=== PATIENT | female | born 1960 | race Caucasian/White ===

== ENCOUNTER → 2018-06-11 12:20 | Outpatient (CLI) | payer OTHER, SELFPAY ==
--- NOTE | 2018-06-11 | DI.MG.S_ITS ---
BILATERAL DIGITAL SCREENING MAMMOGRAM 3D/2D WITH CAD: 06/11/2018 CLINICAL: Routine screening. Comparison is made to exams dated: 05/13/2017 mammogram, 04/10/2016 mammogram, 08/03/2014 mammogram, and 06/18/2013 mammogram - [facility]. The tissue of both breasts is heterogeneously dense. This may lower the sensitivity of mammography. Current study was also evaluated with a Computer Aided Detection (CAD) system. No significant masses, calcifications, or other findings are seen in either breast. There has been no significant interval change. IMPRESSION: NEGATIVE There is no mammographic evidence of malignancy. A 1 year screening mammogram is recommended. This exam was interpreted at Station ID: [id number]. NOTE: For mammograms, a report in lay terms will be sent to the patient. Approximately 15% of breast malignancies will not be visualized mammographically. In the management of a palpable breast mass, a negative mammogram must not discourage biopsy of a clinically suspicious lesion. Electronically Signed By: Jean Claude powell/mark:06/11/2018 17:41:47 letter sent: Normal Exam ACR BI-RADS Category 1: Negative 3341F
== END ==
PROVIDERS: Family Provider Internal Medicine; PCP Internal Medicine; Visit Provider Nurse Practitioner Family
DX: Z12.31 Encounter for screening mammogram for malignant neoplasm of breast (principal)
CPT/HCPCS: 77063; 77067

== ENCOUNTER → 2018-06-16 08:02 | Outpatient (CLI) | payer OTHER, SELFPAY ==
[2018-06-16 09:24] LABS: Hemoglobin 13.2 g/dL (12.0-16.0); Mean Corpuscular HGB Conc 33.8 % (30-36); Mean Corpuscular Hemoglobin 29.5 PG (26-34); Mean Corpuscular Volume 87.4 fL (80-100); Platelet Count 179 X10^3/uL (150-400); Red Blood Cell Count 4.46 X10^6/uL (4.0-5.2); Red Cell Distribution Width 12.8 % (11.6-14.8); White Blood Cell Count 4.8 X10^3/uL (4.5-11.0)
[2018-06-16 09:33] LABS: Hemoglobin A1C% w Est Avg Glu 5.3 % (4.0-6.0)
[2018-06-16 09:58] LABS: Iron 60 ug/dL (37-170)
[2018-06-16 09:59] LABS: Alanine Aminotransferase 41 IU/L (9-52); Albumin 4.7 g/dL (3.5-5.0); Albumin Globulin Ratio 1.6 (1.0-2.8); Alkaline Phosphatase 64 U/L (38-126); Aspartate Aminotransferase 39 IU/L (14-36); Bilirubin Total 0.8 mg/dL (0.2-1.3); Blood Urea Nitrogen 18 mg/dL (7-17); Calcium 9.4 mg/dL (8.4-10.2); Carbon Dioxide 30 mmol/L (22-32); Chloride 103 mmol/L (98-107); Estimated Glomerular Filt Rate > 60.0 mL/min (>60); Gamma Glutamyl Transpeptidase 20 U/L (12-43); Globulin 2.9 g/dL (1.7-4.1); Glucose 99 mg/dL (70-100); HEMOLYSIS < 15 (0-50); Potassium 3.8 mmol/L (3.4-5.1); Sodium 142 mmol/L (137-145); Total Protein 7.6 g/dL (6.3-8.2)
[2018-06-16 10:01] LABS: Vitamin D 25 Hydroxy (D3) 73.1 ng/mL (30.0-100.0)
[2018-06-16 10:10] LABS: Free T4, Direct Thyroxine 1.33 ng/dL (0.78-2.19)
[2018-06-16 10:25] LABS: Thyroid Stimulating Hormone 2.36 uIU/mL (0.47-4.68)
[2018-06-16 10:34] LABS: Hep C Virus Ab w/Reflex Quant NEGATIVE s/c (NEGATIVE)
[2018-06-16 11:01] LABS: Folate > 20.0 ng/mL (2.76-20.0); Vitamin B12 822 pg/mL (239-931)
[2018-06-18 15:51] LABS: Triiodothyronine T3 Total 84 ng/dL (76-181)
== END ==
PROVIDERS: Family Provider Internal Medicine; PCP Internal Medicine; Visit Provider Nurse Practitioner Family
DX: E03.9 Hypothyroidism, unspecified (principal); E67.3 Hypervitaminosis D; R53.83 Other fatigue; Z86.39 Personal history of other endocrine, nutritional and metabolic disease; Z11.59 Encounter for screening for other viral diseases
CPT/HCPCS: 36415; 80053; 82306; 82607; 82746; 82977; 83036; 83540; 84439; 84443; 84480; 85027; 86803

== ENCOUNTER → 2019-06-16 08:00 | Outpatient (CLI) | payer OTHER, SELFPAY ==
--- NOTE | 2019-06-16 | DI.MG.S_ITS ---
BILATERAL DIGITAL SCREENING MAMMOGRAM 3D/2D WITH CAD: 06/16/2019 CLINICAL: Routine screening. Comparison is made to exams dated: 06/11/2018 mammogram, 05/13/2017 mammogram, and 04/10/2016 mammogram - [facility]. The tissue of both breasts is heterogeneously dense. This may lower the sensitivity of mammography. Current study was also evaluated with a Computer Aided Detection (CAD) system. No significant masses, calcifications, or other findings are seen in either breast. There has been no significant interval change. IMPRESSION: NEGATIVE There is no mammographic evidence of malignancy. A 1 year screening mammogram is recommended. This exam was interpreted at Station ID: [id number]. NOTE: For mammograms, a report in lay terms will be sent to the patient. Approximately 15% of breast malignancies will not be visualized mammographically. In the management of a palpable breast mass, a negative mammogram must not discourage biopsy of a clinically suspicious lesion. Electronically Signed By: Marvin siegel/mark:06/16/2019 08:47:57 letter sent: Normal Exam ACR BI-RADS Category 1: Negative 3341F
== END ==
PROVIDERS: PCP Internal Medicine; Visit Provider Internal Medicine
DX: Z12.31 Encounter for screening mammogram for malignant neoplasm of breast (principal)
CPT/HCPCS: 77063; 77067

== ENCOUNTER → 2020-07-20 16:25 | Outpatient (CLI) | payer OTHER, SELFPAY ==
--- NOTE | 2020-07-20 16:29 | DI.RAD.S_ITS ---
PROCEDURE: XR FOOT RT MIN 3V INDICATIONS: injury TECHNIQUE: 3 views of the foot were acquired. COMPARISON: None. FINDINGS: Bones: No fractures or dislocations. No suspicious bony lesions. Soft tissues: No tibiotalar joint effusion. Achilles tendon appears normal. IMPRESSION: No acute right foot fracture or dislocation. Dictated by: Cj Tapia M.D. on 07/20/2020 at 16:50 Approved by: Cj Tapia M.D. on 07/20/2020 at 16:54
== END ==
PROVIDERS: PCP Internal Medicine; Referring Provider Internal Medicine; Visit Provider Internal Medicine
DX: M79.674 Pain in right toe(s) (principal); S99.921A Unspecified injury of right foot, initial encounter; X58.XXXA Exposure to other specified factors, initial encounter
CPT/HCPCS: 73630

== ENCOUNTER → 2020-08-03 08:18 | Outpatient (CLI) | payer OTHER, SELFPAY ==
--- NOTE | 2020-08-03 | DI.MG.S_ITS ---
BILATERAL DIGITAL SCREENING MAMMOGRAM 3D/2D WITH CAD: 08/03/2020 CLINICAL: Routine screening. Comparison is made to exams dated: 06/16/2019 mammogram, 06/11/2018 mammogram, and 05/13/2017 mammogram - [facility]. The tissue of both breasts is heterogeneously dense. This may lower the sensitivity of mammography. Current study was also evaluated with a Computer Aided Detection (CAD) system. No significant masses, calcifications, or other findings are seen in either breast. There has been no significant interval change. IMPRESSION: NEGATIVE There is no mammographic evidence of malignancy. A 1 year screening mammogram is recommended. This exam was interpreted at Station ID: [id number]. NOTE: For mammograms, a report in lay terms will be sent to the patient. Approximately 15% of breast malignancies will not be visualized mammographically. In the management of a palpable breast mass, a negative mammogram must not discourage biopsy of a clinically suspicious lesion. Electronically Signed By: Jean Claude powell/mark:08/03/2020 09:20:51 copy to: Nicole Garduno letter sent: Normal Exam ACR BI-RADS Category 1: Negative 3341F
== END ==
PROVIDERS: PCP Internal Medicine; Referring Provider Internal Medicine; Visit Provider Internal Medicine
DX: Z12.31 Encounter for screening mammogram for malignant neoplasm of breast (principal)
CPT/HCPCS: 77063; 77067

== ENCOUNTER → 2020-10-03 11:10 | Outpatient (CLI) | payer OTHER, SELFPAY ==
--- NOTE | 2020-10-03 | DI.US.S_ITS ---
PROCEDURE: US RENAL COMPLETE INDICATIONS: RIGHT FLANK PAIN AND RENAL INSUFFICIENCY TECHNIQUE: Real-time scanning was performed of the kidneys and bladder, with image documentation. COMPARISON: None. FINDINGS: Kidneys: Kidneys are normal in size. Right kidney measures 9.7 cm long; left kidney measures 11.3 cm long. Right renal cortical thickness is 1.3 cm; left renal cortical thickness is 1.1 cm. Renal cortical echotexture is normal. No hydronephrosis or nephrolithiasis. Trace left renal pelviectasis. No suspicious solid mass lesions. Bladder: Pre-void bladder volume is 235 mL. Post-void residual is 15 mL. Pre-void images demonstrate no intraluminal masses or stones. On pre-void images, bilateral ureteral jets are noted with color Doppler interrogation. (Of note, ureteral jets may not be detectable in up to 25% of cases due to insufficient differences in specific gravity between ureteral and bladder urine). Miscellaneous: No free pelvic fluid. IMPRESSION: Minimal left renal pelviectasis. Dictated by: Twin Galeano [facility] Interpreted: Huber Yarbrough MD on 10/03/2020 at 13:21 Approved by: Huber Yarbrough M.D. on 10/03/2020 at 14:09
== END ==
PROVIDERS: PCP Internal Medicine; Referring Provider Internal Medicine; Visit Provider Internal Medicine
DX: R10.9 Unspecified abdominal pain (principal); N28.9 Disorder of kidney and ureter, unspecified
CPT/HCPCS: 76770

== ENCOUNTER → 2020-12-07 09:28 | Outpatient (CLI) | payer OTHER, SELFPAY | PROVIDERS: PCP Internal Medicine; Referring Provider Internal Medicine; Visit Provider Internal Medicine | DX: M85.851 Other specified disorders of bone density and structure, right thigh (principal); Z78.0 Asymptomatic menopausal state; Z87.891 Personal history of nicotine dependence; Z82.62 Family history of osteoporosis | CPT/HCPCS: 77080 ==

== ENCOUNTER → 2021-05-21 16:14 | Outpatient (CLI) | payer OTHER, SELFPAY ==
[2021-05-21 16:43] LABS: Add Manual Diff / Slide Review NO; Basophils Absolute Auto 0 /uL (0-100); Basophils Percent Auto 0.7 % (0-2); Eosinophils Absolute Auto 200 /uL (0-450); Eosinophils Percent Auto 3.2 % (2-4); Hematocrit 37.7 % (36-46); Hemoglobin 12.8 g/dL (12.0-16.0); Lymphocytes Absolute Auto 1900 /uL (1100-4500); Lymphocytes Percent Auto 36.1 % (25-40); Mean Corpuscular Hemoglobin 28.9 PG (26-34); Monocytes Absolute Auto 300 /uL (0-900); Neutrophils Absolute Auto 2900 /uL (1500-7000); Platelet Count 192 X10^3/uL (150-400); Red Blood Cell Count 4.43 X10^6/uL (4.0-5.2); Red Cell Distribution Width 12.9 % (11.6-14.8); White Blood Cell Count 5.3 X10^3/uL (4.5-11.0)
[2021-05-21 17:04] LABS: INR 1.2 (0.9-1.3); Prothrombin Time 13.4 SECONDS (10.1-12.7)
[2021-05-21 17:13] LABS: Alanine Aminotransferase 20 IU/L (<35); Albumin 4.7 g/dL (3.5-5.0); Albumin Globulin Ratio 1.7 (1.0-2.8); Alkaline Phosphatase 54 U/L (38-126); Aspartate Aminotransferase 30 IU/L (14-36); Bilirubin Total 0.8 mg/dL (0.2-1.3); Blood Urea Nitrogen 20 mg/dL (7-17); Calcium 10.3 mg/dL (8.4-10.2); Carbon Dioxide 30 mmol/L (22-32); Chloride 101 mmol/L (98-107); Estimated Glomerular Filt Rate 56.7 mL/min (>60); Globulin 2.8 g/dL (1.7-4.1); Glucose 100 mg/dL (70-100); HEMOLYSIS < 15 (0-50); Potassium 4.1 mmol/L (3.4-5.1); Sodium 139 mmol/L (137-145); Total Protein 7.5 g/dL (6.3-8.2)
== END ==
PROVIDERS: PCP Internal Medicine; Referring Provider Internal Medicine; Visit Provider Internal Medicine
DX: R19.5 Other fecal abnormalities (principal); R19.8 Other specified symptoms and signs involving the digestive system and abdomen
CPT/HCPCS: 36415; 80053; 85025; 85610

== ENCOUNTER → 2021-06-28 12:49 | Outpatient (CLI) | payer OTHER, SELFPAY ==
--- NOTE | 2021-06-28 12:50 | DI.RAD.S_ITS ---
PROCEDURE: XR CHEST 2V INDICATIONS: Post COVID/Possible Pneumonia TECHNIQUE: 2 views of the chest were acquired. COMPARISON: [facility], , CHEST 1 VIEW, 07/27/2015, 15:46. FINDINGS: Surgical changes and devices: None. Lungs and pleura: Mild streaky opacity at the right lung base. No pleural effusions or pneumothorax. Mediastinum: Mediastinal contours are normal. Heart size is normal. Bones and chest wall: No suspicious bony abnormalities. Soft tissues appear unremarkable. IMPRESSION: Mild streaky opacity at the right lung base. Favor atelectasis over pneumonia. Dictated by: Janes Murrell M.D. on 06/28/2021 at 15:50 Approved by: Janes Murrell M.D. on 06/28/2021 at 15:51
== END ==
PROVIDERS: PCP Internal Medicine; Referring Provider Internal Medicine; Visit Provider Internal Medicine
DX: Z09 Encounter for follow-up examination after completed treatment for conditions other than malignant neoplasm (principal); Z86.16 Personal history of COVID-19; J18.9 Pneumonia, unspecified organism
CPT/HCPCS: 71046

== ENCOUNTER → 2021-08-28 16:32 | Outpatient (CLI) | payer OTHER, SELFPAY ==
--- NOTE | 2021-08-28 16:34 | DI.MG.S_ITS ---
BILATERAL DIGITAL SCREENING MAMMOGRAM 3D/2D WITH CAD: 08/28/2021 CLINICAL: Routine screening. Comparison is made to exams dated: 08/03/2020 mammogram, 06/16/2019 mammogram, and 06/11/2018 mammogram - [facility]. The tissue of both breasts is heterogeneously dense. This may lower the sensitivity of mammography. Current study was also evaluated with a Computer Aided Detection (CAD) system. No significant masses, calcifications, or other findings are seen in either breast. There has been no significant interval change. IMPRESSION: NEGATIVE There is no mammographic evidence of malignancy. A 1 year screening mammogram is recommended. This exam was interpreted at Station ID: [id number]. NOTE: For mammograms, a report in lay terms will be sent to the patient. Approximately 15% of breast malignancies will not be visualized mammographically. In the management of a palpable breast mass, a negative mammogram must not discourage biopsy of a clinically suspicious lesion. Electronically Signed By: Jenni rosales/mark:08/28/2021 17:18:23 copy to: Nicole Garduno letter sent: Normal Exam ACR BI-RADS Category 1: Negative 3341F
== END ==
PROVIDERS: PCP Internal Medicine; Referring Provider Internal Medicine; Visit Provider Internal Medicine
DX: Z12.31 Encounter for screening mammogram for malignant neoplasm of breast (principal)
CPT/HCPCS: 77063; 77067

== ENCOUNTER → 2021-09-24 16:32 | Outpatient (CLI) | payer OTHER, SELFPAY ==
--- NOTE | 2021-09-24 16:35 | DI.RAD.S_ITS ---
PROCEDURE: XR HIP W PEL IF DONE RT 2V INDICATIONS: RIGHT HIP PAIN TECHNIQUE: AP pelvis with lateral view(s) of the right hip(s). COMPARISON: None. FINDINGS: Bones: No fractures or dislocations. Pelvic ring appears intact. No suspicious bony lesions. Soft tissues: The visualized bowel gas pattern is normal. No suspicious soft tissue calcifications. IMPRESSION: No acute radiographic findings. No findings to explain hip pain. Dictated by: Ileana Saeed M.D. on 09/25/2021 at 8:19 Approved by: Ileana Saeed M.D. on 09/25/2021 at 8:19
== END ==
PROVIDERS: PCP Internal Medicine; Referring Provider Internal Medicine; Visit Provider Internal Medicine
DX: M25.551 Pain in right hip (principal)
CPT/HCPCS: 73502

== ENCOUNTER → 2021-10-04 10:10 | Outpatient (CLI) | payer OTHER, SELFPAY ==
[2021-10-04 12:22] LABS: HEMOLYSIS < 15 (0-50); Iron 65 ug/dL (37-170)
[2021-10-04 12:33] LABS: Percent Iron Saturation 18 % (15-50); Total Iron Binding Capacity 362 ug/dL (265-497); Transferrin 292 mg/dL (206-381)
[2021-10-04 12:38] LABS: Vitamin D 25 Hydroxy (D3) 34.4 ng/mL (30.0-100.0)
[2021-10-04 12:59] LABS: Ferritin 35 ng/mL (11-264)
[2021-10-04 13:30] LABS: Vitamin B12 866 pg/mL (239-931)
[2021-10-06 16:42] LABS: ANA Screen, IFA Positive (.); Speckled Pattern >1:1280 (.)
== END ==
PROVIDERS: PCP Internal Medicine; Referring Provider Dermatology; Visit Provider Dermatology
DX: L65.0 Telogen effluvium (principal); F43.0 Acute stress reaction
CPT/HCPCS: 36415; 82306; 82607; 82728; 82746; 83540; 83550; 86038

== ENCOUNTER → 2022-09-27 07:57 | Outpatient (CLI) | payer OTHER, SELFPAY ==
--- NOTE | 2022-09-27 08:00 | DI.MG.S_ITS ---
BILATERAL DIGITAL SCREENING MAMMOGRAM 3D/2D WITH CAD: 09/27/2022 CLINICAL: Routine screening. Comparison is made to exams dated: 08/28/2021 mammogram, 08/03/2020 mammogram, and 06/16/2019 mammogram - [facility]. Both breasts are heterogeneously dense, which may obscure small masses (category c / 51-75% glandular tissue). Current study was also evaluated with a Computer Aided Detection (CAD) system. No significant masses, calcifications, or other findings are seen in either breast. There has been no significant interval change. IMPRESSION: NEGATIVE There is no mammographic evidence of malignancy. A 1 year screening mammogram is recommended. Based on the Tyrer Cuzick model (a risk assessment model) the patient's lifetime risk is 11.1% and her 10 year risk is 4.5%. According to the ACR, ACS, and NCCN guidelines, an annual breast MRI exam along with mammogram is recommended if the patient's lifetime risk is 20% or greater. This exam was interpreted at Station ID: [id number]. NOTE: For mammograms, a report in lay terms will be sent to the patient. Approximately 15% of breast malignancies will not be visualized mammographically. In the management of a palpable breast mass, a negative mammogram must not discourage biopsy of a clinically suspicious lesion. Electronically Signed By: Jenni rosales/mark:09/27/2022 17:15:17 copy to: Nicole Garduno letter sent: Normal Exam ACR BI-RADS Category 1: Negative 3341F
== END ==
PROVIDERS: PCP Internal Medicine; Referring Provider Internal Medicine; Visit Provider Internal Medicine
DX: Z12.31 Encounter for screening mammogram for malignant neoplasm of breast (principal)
CPT/HCPCS: 77063; 77067

== ENCOUNTER → 2022-11-26 09:03 | Outpatient (CLI) | payer OTHER, SELFPAY ==
--- NOTE | 2022-11-26 09:03 | DI.RAD.S_ITS ---
PROCEDURE: XR RIBS LT MIN 3V W CXR1V INDICATIONS: Pain in left ribs TECHNIQUE: 2 views of the left ribs were acquired, along with a single view chest. COMPARISON: [facility], , XR CHEST 2V, 06/28/2021, 12:44. FINDINGS: Surgical changes and devices: None. Bones and chest wall: No fractures or dislocations. No suspicious bony lesions. Overlying soft tissues appear unremarkable. Lungs and pleura: No pleural effusions or pneumothorax. Lungs appear clear. Mediastinum: Mediastinal contours appear normal. Heart size is normal. IMPRESSION: No acute cardiopulmonary abnormality. No displaced left-sided rib fracture. Dictated by: Janes Murrell M.D. on 11/26/2022 at 12:12 Approved by: Janes Murrell M.D. on 11/26/2022 at 12:17
== END ==
PROVIDERS: PCP Internal Medicine; Referring Provider Physician Assistant; Visit Provider Physician Assistant
DX: R07.81 Pleurodynia (principal)
CPT/HCPCS: 71101

== ENCOUNTER → 2023-01-01 08:13 | Outpatient (CLI) | payer OTHER, SELFPAY ==
[2023-01-01 09:50] LABS: Creatinine Urine Random 19.4 mg/dL; Protein (Total) Urine Random 12 mg/dL (0-12); Protein Creatinine Ratio Urine 0.61 GRAM/24H
[2023-01-01 09:56] LABS: Microalbumin Urine Random < 0.6 mg/dL (0-1.6)
== END ==
PROVIDERS: PCP Internal Medicine; Referring Provider Internal Medicine Nephrology; Visit Provider Internal Medicine Nephrology
DX: R80.1 Persistent proteinuria, unspecified (principal)
CPT/HCPCS: 82043; 82570; 84156

== ENCOUNTER → 2023-03-25 15:14 | Outpatient (CLI) | payer OTHER, SELFPAY ==
--- NOTE | 2023-03-25 15:15 | DI.RAD.S_ITS ---
Bone Density Report Name: JERONIMO STEWARD Age: 62 Sex: Female Ethnicity: White Date of : 1960 Indication: postmenopausal; screening for osteoporosis; history of glucocorticoids; Referring Provider: CELIA RODRIGUEZ Study: Bone densitometry was performed. Exam Date: March 25, 2023 Accession number: [id number] Bone Density: Region BMD T-score Z-score Classification AP Spine(L1, L3, L4) 0.910 -1.3 0.2 Osteopenia Femoral Neck (Left) 0.679 -1.5 -0.2 Osteopenia Total Hip (Left) 0.863 -0.6 0.3 Normal Femoral Neck (Right) 0.680 -1.5 -0.2 Osteopenia Total Hip (Right) 0.867 -0.6 0.4 Normal Total Hip Mean 0.865 -0.6 0.4 Normal World Health Organization criteria for BMD impression classify patients as: Normal (T-score at or above -1.0), Osteopenia (T-score between -1.0 and -2.5), or Osteoporosis (T-score at or below -2.5). 10-year Fracture Risk(1): Major Osteoporotic Fracture 12% Hip Fracture 1.3% Reported Risk Factors: [place] (), Neck BMD=0.679, BMI=19.8, glucocorticoids (1) FRAX(R) Version 3.08. Fracture probability calculated for an untreated patient. Fracture probability may be lower if the patient has received treatment. Previous Exams: -- Region Exam Age BMD T-score BMD Change BMD Change Date g/cm2 vs Baseline vs Previous -- AP Spine (L1,L3-L4) 03/25/2023 62 0.910 -1.3 -0.111 (-10.9%)# -0.111 (-10.9%)# 12/07/2020 60 1.021 -0.3 Total Hip(Left) 03/25/2023 62 0.863 -0.6 -0.064 (-6.9%)# -0.064 (-6.9%)# 12/07/2020 60 0.927 -0.1 Total Hip(Right) 03/25/2023 62 0.867 -0.6 -0.009 (-1.0%)# -0.009 (-1.0%)# 12/07/2020 60 0.876 -0.5 -- *Denotes significance at 95% confidence level, LSC for AP Spine = 0.022 g/cm2, LSC for Total Hip = 0.027 g/cm2 # Denotes dissimilar scan types or analysis methods Impression: The patient has low bone mass, based on the Left Femoral Neck T-score. The patient has an estimated ten-year risk of hip fracture of 1.3% and an estimated ten-year risk of major fracture of 12%, based on the WHO FRAX algorithm. The patient has risk factors, including: history of glucocorticoid therapy. No significant bone loss was observed. Discussion: BONE DENSITY IS LOW AT ONE OR MORE SKELETAL SITES. This patient's lowest T-score is low at one or more skeletal sites. It meets the World Health Organization's (WHO) criteria for low bone mass (T-score between -1.0 and -2.5). The patient's 10-year risk of fracture as calculated by FRAX is less than the threshold where pharmacological therapy is recommended by the National Osteoporosis Foundation (NOF). However, all treatment decisions require clinical judgment and consideration of individual patient factors, including patient preferences, comorbidities, previous drug use, risk factors not captured in the FRAX model (e.g., frailty, falls, vitamin D deficiency, increased bone turnover, interval significant decline in bone density) and possible under or overestimation of fracture risk by FRAX. The patient should follow a healthful lifestyle (good nutrition with adequate calcium and vitamin D, and appropriate weight-bearing exercise). Follow-Up: Consider repeating this study in 2 to 3 years to reassess this patient's status, or sooner if there is some new clinical indication. Reported by: SANTOSH REED M.D. on 03/25/2023 3:34:00 PM.
== END ==
PROVIDERS: PCP Internal Medicine; Referring Provider Internal Medicine; Visit Provider Internal Medicine
DX: Z78.0 Asymptomatic menopausal state (principal); M85.852 Other specified disorders of bone density and structure, left thigh; Z92.241 Personal history of systemic steroid therapy; Z92.23 Personal history of estrogen therapy
CPT/HCPCS: 77080

== ENCOUNTER → 2023-06-12 08:01 | Outpatient (CLI) | payer OTHER, SELFPAY ==
--- NOTE | 2023-06-12 | DI.RAD.S_ITS ---
PROCEDURE: XR ANKLE RT MIN 3V INDICATIONS: right ankle pain TECHNIQUE: 3 views of the ankle were acquired. COMPARISON: None. FINDINGS: Bones: No fractures or dislocations. Ankle mortise is normally aligned. No suspicious bony lesions. Soft tissues: No tibiotalar joint effusion. Achilles tendon appears normal. IMPRESSION: No acute bony abnormality or significant effusion. Approved by: Rosa M Mclaughlin M.D. on 06/12/2023 at 10:20
--- NOTE | 2023-06-12 | DI.US.S_ITS ---
PROCEDURE: US ABDOMEN COMPLETE INDICATIONS: GALL STONES TECHNIQUE: Real-time scanning was performed of the abdominal and retroperitoneal organs, with image documentation. COMPARISON: [facility], [place], ABDOMEN COMPLETE, 10/03/2017, 9:27. FINDINGS: Liver: Liver is normal in size and homogeneous in echotexture. Gallbladder: Layering sludge versus small gallstones can be seen. The gallbladder wall is not thickened, measuring 3 mm or less. No specific pericholecystic fluid is seen. The sonographic Waller sign is negative. Biliary ducts: Intrahepatic bile ducts are non-dilated. Extrahepatic bile duct caliber measures 1 mm. Normal is 6-7 mm or less in diameter, or 10 mm or less post-cholecystectomy. Pancreas: Visualized portions of the pancreas are sonographically normal. Spleen: Spleen is normal in size and homogeneous in echotexture. Incidental note is made of an accessory splenule along the hilum of the primary spleen, measuring up to 2.6 cm. Kidneys: Kidneys are normal in size and echotexture. Right kidney measures 10.2 cm long; left kidney measures 9.8 cm long. No nephrolithiasis. No solid masses. No kaleb hydronephrosis is seen, although there is a prominent left renal collecting system. Aorta: Visualized aorta is normal in caliber at less than 3 cm. Iliacs: Proximal common iliac arteries are normal in caliber at less than 2.5 cm. IVC: Intrahepatic inferior vena cava is patent. Miscellaneous: No free abdominal fluid. IMPRESSION: Sludge versus small layering gallstones, without additional sonographic signs of cholecystitis. No biliary dilatation. Mild prominence of the left renal collecting system can be seen, without kaleb hydronephrosis. Additional findings: Accessory splenule Dictated by: Jose Manuel Olmedo M.D. on 06/12/2023 at 11:58 Approved by: Jose Manuel Olmedo M.D. on 06/12/2023 at 12:02
== END ==
PROVIDERS: PCP Internal Medicine; Referring Provider Internal Medicine; Visit Provider Internal Medicine
DX: M25.571 Pain in right ankle and joints of right foot (principal); K80.20 Calculus of gallbladder without cholecystitis without obstruction; R79.89 Other specified abnormal findings of blood chemistry; R53.83 Other fatigue
CPT/HCPCS: 73610; 76700

== ENCOUNTER → 2023-11-07 15:43 | Outpatient (CLI) | payer OTHER, SELFPAY ==
--- NOTE | 2023-11-07 15:48 | DI.MG.S_ITS ---
BILATERAL DIGITAL SCREENING MAMMOGRAM 3D/2D WITH CAD: 11/07/2023 CLINICAL: Routine screening. Comparison is made to exams dated: 09/27/2022 mammogram, 08/28/2021 mammogram, and 08/03/2020 mammogram - [facility]. Both breasts are heterogeneously dense, which may obscure small masses (category c / 51-75% glandular tissue). Current study was also evaluated with a Computer Aided Detection (CAD) system. No significant masses, calcifications, or other findings are seen in either breast. There has been no significant interval change. IMPRESSION: NEGATIVE There is no mammographic evidence of malignancy. A 1 year screening mammogram is recommended. Based on the Tyrer Cuzick model (a risk assessment model) the patient's lifetime risk is 10.8% and her 10 year risk is 4.6%. According to the ACR, ACS, and NCCN guidelines, an annual breast MRI exam along with mammogram is recommended if the patient's lifetime risk is 20% or greater. This exam was interpreted at Station ID: [id number]. NOTE: For mammograms, a report in lay terms will be sent to the patient. Approximately 15% of breast malignancies will not be visualized mammographically. In the management of a palpable breast mass, a negative mammogram must not discourage biopsy of a clinically suspicious lesion. Electronically Signed By: Ileana paula/mark:11/07/2023 16:34:59 copy to: Nicole Garduno letter sent: Normal Exam ACR BI-RADS Category 1: Negative 3341F
== END ==
LOC: MAMMO 15:47
PROVIDERS: PCP Internal Medicine; Referring Provider Internal Medicine; Visit Provider Internal Medicine
DX: Z12.31 Encounter for screening mammogram for malignant neoplasm of breast (principal); R92.333 Mammographic heterogeneous density, bilateral breasts
CPT/HCPCS: 77063; 77067

== ENCOUNTER → 2023-11-20 13:19 | Outpatient (CLI) | payer OTHER, SELFPAY ==
--- NOTE | 2023-11-20 13:22 | DI.RAD.S_ITS ---
PROCEDURE: XR CHEST 2V INDICATIONS: SOB TECHNIQUE: 2 views of the chest were acquired. COMPARISON: [facility], CT, CT ABDOMEN PELVIS WITH CONTRAST, 07/29/2023, 11:29. [facility], CR, XR CHEST 2V, 06/28/2021, 12:44. FINDINGS: Surgical changes and devices: None. Lungs and pleura: Lungs are clear. No pleural effusions or pneumothorax. Mediastinum: Mediastinal contours are normal. Heart size is normal. Bones and chest wall: No suspicious bony abnormalities. Soft tissues appear unremarkable. IMPRESSION: No acute cardiopulmonary abnormality is seen. Dictated by: Janes Murrell M.D. on 11/20/2023 at 15:18 Approved by: Janes Murrell M.D. on 11/20/2023 at 15:18
== END ==
PROVIDERS: PCP Internal Medicine; Referring Provider Internal Medicine Cardiovascular Disease; Visit Provider Internal Medicine Cardiovascular Disease
DX: R55 Syncope and collapse (principal); R06.02 Shortness of breath; I49.3 Ventricular premature depolarization
CPT/HCPCS: 71046

== ENCOUNTER 2023-12-16 18:44 | Emergency (ER) | payer OTHER, SELFPAY ==
[2023-12-16 18:50] VITALS: BP 141/67; PULSE 73; RESP 16; TEMP 36.1; O2SAT 100; BMI 19.8
--- NOTE | 2023-12-16 21:37 | ED.LOWEXIN ---
HPI - Extremity Injury (Lower) General Chief Complaint: Extremity Injury, Lower Stated Complaint: rt foot swelling Time Seen by Provider: 12/16/23 21:19 Source: patient Mode of arrival: Ambulatory History of Present Illness HPI Narrative: Patient is a 63-year-old female who is here for evaluation of discomfort to the outside of her right foot. She states the symptoms happened rather suddenly without a specific trauma. The past 2 days she has had cramping in both of her calf muscles. She recently was diagnosed with rheumatoid arthritis. Is on a low-dose naltrexone for this. No prior injury to her foot. She denies chest pain or shortness of breath to me on my exam. No fevers. Symptoms started when she was driving Related Data Home Medications Medication Instructions Recorded Confirmed Citracal and Vitamin D3 See Rx Instructions PO DAILY 09/13/19 11/26/22 levothyroxine 50 mcg capsule 50 mcg PO DAILY 09/13/19 11/26/22 omega-3 fatty acids 1,000 mg 1,000 mg PO DAILY 09/13/19 11/26/22 capsule (Fish Oil Concentrate) [facility] Multivitamin 1 tab PO DAILY 05/24/21 11/26/22 vit C 50 mg-E 15 unit-zinc cit 4.5 1 tab PO DAILY 05/24/21 11/26/22 mg-lutein 2.5 mg-zeaxan chew tablet ([facility]) Allergies Allergy/AdvReac Type Severity Reaction Status Date / Time latex [LATEX] Allergy Mild RASH Verified 11/26/22 08:47 meperidine [MEPERIDINE] Allergy Unknown Verified 11/26/22 08:47 Penicillins [PENICILLINS] Allergy Unknown Verified 11/26/22 08:47 Review of Systems Constitutional Constitutional: Reports system reviewed and no additional complaints, except as documented Musculoskeletal Musculoskeletal: Reports system reviewed and no additional complaints, except as documented Integumentary/Breasts Skin/Breast: Reports system reviewed and no additional complaints, except as documented Neurologic Neurologic: Reports system reviewed and no additional complaints, except as documented Patient History Medical History Cardiac arrhythmia (06/10/11) Heart murmur (06/10/11) Acquired hypothyroidism (06/10/11) Raynaud's phenomenon without gangrene (06/10/11) Herpes simplex virus (HSV) infection (06/10/11) Family History Father Colon cancer Social History Smoking Status: Never smoker Smoking Status: Never smoker alcohol intake frequency: a few times a week Alcohol type: wine Substance Use Type: does not use Exam Initial Vital Signs Initial Vital Signs: Vital Signs Temperature 97.0 F L 12/16/23 18:50 Pulse Rate 73 12/16/23 18:50 Respiratory Rate 16 12/16/23 18:50 Blood Pressure 141/67 H 12/16/23 18:50 Pulse Oximetry 100 12/16/23 18:50 Oxygen Delivery Method Room Air 12/16/23 18:50 HENMT Head: normal to inspection and normocephalic Cardio Pulses: dorsalis pedis present on the right Skin General: no rashes or lesions noted Neuro General: patient alert, patient awake and moves all extremities Extrem Other: No lower extremity swelling. No tenderness to bilateral calf muscles are in the distribution of the deep venous system. She reports discomfort at the base of the 5th metatarsal on the right and on the dorsum of the right foot lateral aspect. Procedures Orthopedic Splinting/Casting Injury #1: Side: right Lower Extremity Injury Location: foot Lower Extremity Immobilizer: post-op shoe Post splinting neuro exam: no change Post splinting vascular exam: no change Placed by: Nursing Course Orders Ordered: ED Orders 12/16/23 21:37 XR foot RT min 3V Stat Vital Signs Vital signs: Vital Signs - 8 hr 12/16/23 22:17 Pulse Rate 58 L Respiratory Rate 16 Blood Pressure 122/58 L Pulse Oximetry 97 Oxygen Delivery Method Room Air MDM - Extremity Injury (Lower) Imaging Data Extremity x-ray #1: Radiologist's Impression: PROCEDURE: XR FOOT RT MIN 3V INDICATIONS: bas of 5th pain TECHNIQUE: 3 views of the foot were acquired. COMPARISON: [facility], , XR FOOT RT MIN 3V, 07/20/2020, 16:39. FINDINGS: Bones: Possible nondisplaced oblique intra-articular fracture at the medial 5th proximal phalangeal base. Osseous structures are otherwise intact. Soft tissues: No suspicious soft tissue calcification. IMPRESSION: Possible nondisplaced intra-articular fracture at the medial 5th proximal phalangeal base. MDM Narrative Medical decision making narrative: X-ray does show concerned about a potential fracture at the base of the proximal phalanx of the 5th toe. She has no tenderness over this area. He x-ray does not show any acute findings the base of the 5th metatarsal where she was having discomfort. I have low suspicion for DVT. Low suspicion for infection. Plan will be is to place her in a postoperative shoe for comfort. We discussed other conservative measures. Will discharge back to home with return precautions. She expressed understanding and agreement. Discharge Plan Departure Patient Disposition: Home Clinical Impression: Injury of foot, right Instructions: How To Perform RICE (Rest, Ice, Compress, Elevate) Activity Restrictions/Additional Instructions: You can walk on your right foot as tolerated although for the next couple days I do recommend wearing the hard sole shoe. Try to keep your foot elevated as much as possible. Contact your primary doctor for follow-up. Return to the emergency department for new or worsening symptoms. Prescriptions: No Action [facility] Multivitamin 1 tab PO DAILY O[facility] 50 mg-15 unit- 4.5 mg-2.5 mg tablet,chewable 1 tab PO DAILY levothyroxine 50 mcg capsule 50 mcg PO DAILY omega-3 fatty acids [Fish Oil Concentrate] 1,000 mg capsule 1,000 mg PO DAILY Citracal and Vitamin D3 See Rx Instructions PO DAILY Rx Instructions: 1 TAB PO daily; 200MG/250IU Referrals: Nicole Garduno ARNP [Primary Care Provider] - Stand Alone Forms: Patient Portal/API
[2023-12-16 22:17] VITALS: BP 122/58; PULSE 58; RESP 16; O2SAT 97
== END 2023-12-16 23:08 | disposition home or self-care (01) ==
PROVIDERS: Emergency Provider Emergency Medicine; PCP Internal Medicine
DX: S99.921A Unspecified injury of right foot, initial encounter (principal)
CPT/HCPCS: 73630; 99283

== ENCOUNTER → 2024-03-29 15:48 | Outpatient (CLI) | payer OTHER, SELFPAY ==
--- NOTE | 2024-03-29 15:51 | DI.RAD.S_ITS ---
PROCEDURE: XR HAND LT MIN 3V INDICATIONS: Pain in left finger(s) TECHNIQUE: 3 views of the hand(s) acquired. COMPARISON: None. FINDINGS: Bones: Ulnar minus anomaly noted. No other osseous abnormality. Joints: The joint spaces are normal in width and alignment without arthritic change. Soft tissues: No soft tissue abnormality. IMPRESSION: Ulnar minus. Mild osteoporosis Dictated by: Anthony Shafer M.D. on 03/30/2024 at 8:21 Approved by: Anthony Shafer M.D. on 03/30/2024 at 8:22
== END ==
LOC: RAD 15:50
PROVIDERS: PCP Internal Medicine; Referring Provider Internal Medicine; Visit Provider Internal Medicine
DX: M05.79 Rheumatoid arthritis with rheumatoid factor of multiple sites without organ or systems involvement (principal); M81.0 Age-related osteoporosis without current pathological fracture; M79.645 Pain in left finger(s); M21.832 Other specified acquired deformities of left forearm
CPT/HCPCS: 73130

== ENCOUNTER 2024-09-12 10:39 | Emergency (ER) | payer OTHER, SELFPAY ==
[2024-09-12] VITALS (12 sets, daily range): BP systolic 114–164; BP diastolic 58–76; PULSE 54–76; RESP 18–35; TEMP 36.7–36.8; O2SAT 100; BMI 21.2
--- NOTE | 2024-09-12 10:53 | DI.RAD.S_ITS ---
PROCEDURE: XR CHEST 1V INDICATIONS: Shortness of breath TECHNIQUE: One view of the chest was acquired. COMPARISON: [facility], CR, XR CHEST 2V, 11/20/2023, 12:42. FINDINGS: Surgical changes and devices: None. Lungs and pleura: Lungs are clear. No pleural effusions or pneumothorax. Mediastinum: Mediastinal contours appear normal. Heart size is normal. Bones and chest wall: No suspicious bony lesions. Overlying soft tissues appear unremarkable. IMPRESSION: No acute cardiopulmonary abnormality is seen. Approved by: Reid Narayan M.D. on 09/12/2024 at 10:50
--- NOTE | 2024-09-12 10:53 | EKG_ITS ---
[address] [address] Test Date: 2024-09-12 Pat Name: Amanda Conway Department: [facility] Room: Gender: Female Interface Analyst: [place] : 1960 Requested By: Order Number: [id number] Reading MD: Nitin Staton Measurements Intervals [place] Rate: 67 P: 81 NH: 128 QRS: 80 QRSD: 84 T: 35 QT: 402 QTc: 424 Interpretive Statements Normal sinus rhythm Electronically Signed On 09-12-2024 18:58:05 PST by Nitin Staton
[2024-09-12 11:36] LABS: Add Manual Diff / Slide Review NO; Basophils Absolute Auto 0 /uL (0-100); Basophils Percent Auto 1.3 % (0-2); Eosinophils Absolute Auto 200 /uL (0-450); Eosinophils Percent Auto 5.5 % (2-4); Hematocrit 40.1 % (36-46); Hemoglobin 13.6 g/dL (12.0-16.0); Lymphocytes Absolute Auto 1200 /uL (1100-4500); Lymphocytes Percent Auto 34.5 % (25-40); Mean Corpuscular HGB Conc 33.9 % (30-36); Mean Corpuscular Hemoglobin 29.5 PG (26-34); Monocytes Absolute Auto 200 /uL (0-900); Monocytes Percent Auto 6.8 % (3-14); Neutrophils Absolute Auto 1800 /uL (1500-7000); Neutrophils Percent Auto 51.9 % (50-75); Platelet Count 161 X10^3/uL (150-400); Red Cell Distribution Width 12.7 % (11.6-14.8); White Blood Cell Count 3.5 X10^3/uL (4.5-11.0)
[2024-09-12 11:38] LABS: INR 1.1 (0.9-1.3); Prothrombin Time 12.3 SECONDS (9.4-12.5)
[2024-09-12 11:50] LABS: Alanine Aminotransferase 24 IU/L (<35); Albumin 4.7 g/dL (3.5-5.0); Albumin Globulin Ratio 1.7 (1.0-2.8); Alkaline Phosphatase 68 U/L (38-126); Aspartate Aminotransferase 34 IU/L (14-36); BUN Creatinine Ratio 21.2 (6-22); Bilirubin Total 0.9 mg/dL (0.2-1.3); Blood Urea Nitrogen 21 mg/dL (7-17); Calcium 9.4 mg/dL (8.4-10.2); Carbon Dioxide 26 mmol/L (22-32); Chloride 103 mmol/L (98-107); Estimated Glomerular Filt Rate > 60 mL/min (>60); Globulin 2.7 g/dL (1.7-4.1); Glucose 109 mg/dL (80-110); HEMOLYSIS < 15 (0-50); Potassium 3.8 mmol/L (3.4-5.1); Sodium 139 mmol/L (137-145); Total Protein 7.4 g/dL (6.3-8.2)
[2024-09-12 12:02] LABS: NT-proBNP (BNP-Adult 18+) 169 pg/mL (<125); Troponin I < 0.012 ng/mL (0.01-0.034)
--- NOTE | 2024-09-12 12:12 | PC.NURSE ---
Patient requested to go to the bathroom. Patient self ambulated in department without assistance. This RN unhooked the patient from monitoring equipment and allowed patient to go to the restroom.
--- NOTE | 2024-09-12 13:31 | ED.SOB ---
HPI - SOB/Dyspnea General Chief Complaint: Shortness of Breath/Dyspnea Stated Complaint: Trouble Breathing/Feeling Faint Time Seen by Provider: 09/12/24 12:06 History of Present Illness HPI Narrative: 65-year-old female complaining of shortness of breath. Reportedly she has had intermittent dyspnea for several days. States that it occurs when she is walking and seated. Resolves when she lies down. It is not associated with chest pain. Says that she can exercise on her treadmill and notices symptoms when she stops. Sometimes she notices a bit of wheezing and a cough. Symptoms also occur when she is sitting down and not exerting herself. She has not had fevers. Since she had asthma as a child has not been using an inhaler. In terms of cardiac risk factors, family history of coronary disease she has a nonsmoker no personal history of diabetes elevated cholesterol or hypertension. No recent prolonged immobilizations or leg swelling although she is noticed some right calf pain recently. Not taking hormone replacement Related Data Home Medications Medication Instructions Recorded Confirmed Citracal and Vitamin D3 See Rx Instructions PO DAILY 09/13/19 04/16/24 omega-3 fatty acids 1,000 mg 1,000 mg PO DAILY 09/13/19 04/16/24 capsule (Fish Oil Concentrate) [facility]NC Multivitamin 1 tab PO DAILY 05/24/21 04/16/24 vit C 50 mg-E 15 unit-zinc cit 4.5 1 tab PO DAILY 05/24/21 04/16/24 mg-lutein 2.5 mg-zeaxan chew tablet ([place] Zhangmen) levothyroxine 50 mcg tablet 50 mcg PO DAILY 03/09/24 04/16/24 lifitegrast 5 % eye drops in a drp ophthalmic (eye) 03/09/24 04/16/24 dropperette (Xiidra) liothyronine 5 mcg tablet mcg PO 03/09/24 04/16/24 Previous Rx's Medication Instructions Recorded erythromycin 5 mg/gram (0.5 %) eye 0.5 inch EYE-RIGHT QID #3.5 grams 03/09/24 ointment albuterol sulfate 90 mcg/actuation 2 puff inhalation Q4-6H PRN 09/12/24 aerosol inhaler shortness of breath or wheezing #6.7 grams Allergies Allergy/AdvReac Type Severity Reaction Status Date / Time latex [LATEX] Allergy Mild RASH Verified 04/16/24 08:50 meperidine [MEPERIDINE] Allergy Unknown Verified 04/16/24 08:50 Penicillins [PENICILLINS] Allergy Unknown Verified 04/16/24 08:50 Patient History Medical History Cardiac arrhythmia (06/10/11) Heart murmur (06/10/11) Acquired hypothyroidism (06/10/11) Raynaud's phenomenon without gangrene (06/10/11) Herpes simplex virus (HSV) infection (06/10/11) Family History Father Colon cancer Social History Smoking Status: Never smoker Smoking Status: Never smoker alcohol intake frequency: a few times a week Alcohol type: wine Exam Initial Vital Signs Initial Vital Signs: Vital Signs Pulse Rate 76 09/12/24 10:50 Respiratory Rate 22 09/12/24 10:50 Pulse Oximetry 100 09/12/24 10:50 Tachypneic at triage, borderline bradycardic normal oxygen saturation HENMT HENMT Other: Normocephalic atraumatic Neck Other: Supple without jugular venous distention Resp Other: Lungs are clear with equal breath sounds Cardio Other: No murmur, regular rate Skin Other: Warm and dry Neuro Other: Alert without obvious neurologic deficits Course Orders Ordered: ED Orders 09/12/24 10:53 XR chest 1V Stat EKG-12 Lead Stat Measure peak expiratory flow ONCE RT Consult Eval and Treat NOW 09/12/24 11:25 Complete Blood Count AUTO DIFF Stat Comprehensive Metabolic Panel Stat Lactate (Lactic Acid) Stat NT-proBNP (BNP-Adult 18+) Stat Prothrombin Time INR Stat Troponin I Stat 09/12/24 13:41 US periph venous low extrem rt Stat Reevaluation(s) Reevaluation #1: Says that while she was here she has had some intermittent and brief episodes where she felt dyspneic. No changes noted on monitor vital signs have remained stable oxygen saturations are normal Vital Signs Vital signs: Vital Signs - 8 hr 09/12/24 10:50 09/12/24 10:54 09/12/24 11:00 Temperature 98.1 F Pulse Rate 76 73 69 Respiratory Rate 22 18 35 H Blood Pressure 164/76 H Pulse Oximetry 100 100 100 Oxygen Delivery Method Room Air 09/12/24 11:00 09/12/24 11:18 09/12/24 11:18 Temperature Pulse Rate 69 Respiratory Rate 18 Blood Pressure 127/61 144/71 H Pulse Oximetry 100 Oxygen Delivery Method 09/12/24 11:30 09/12/24 11:30 09/12/24 12:00 Temperature Pulse Rate 62 59 L Respiratory Rate 19 29 H Blood Pressure 127/59 L Pulse Oximetry 100 100 Oxygen Delivery Method 09/12/24 12:00 09/12/24 12:16 09/12/24 12:16 Temperature Pulse Rate 59 L Respiratory Rate 22 Blood Pressure 129/71 132/72 Pulse Oximetry 100 Oxygen Delivery Method 09/12/24 12:30 09/12/24 12:30 09/12/24 13:00 Temperature Pulse Rate 57 L 58 L Respiratory Rate 28 H 23 Blood Pressure 114/58 L Pulse Oximetry 100 100 Oxygen Delivery Method 09/12/24 13:00 09/12/24 13:30 09/12/24 13:30 Temperature Pulse Rate 59 L Respiratory Rate 18 Blood Pressure 117/60 125/64 Pulse Oximetry 100 Oxygen Delivery Method 09/12/24 14:00 09/12/24 14:00 Temperature Pulse Rate 54 L Respiratory Rate 18 Blood Pressure 131/63 Pulse Oximetry 100 Oxygen Delivery Method MDM - SOB/Dyspnea Lab Data Lab results narrative: Minimally elevated proBNP, CBC shows a slightly low white count with a normal hemoglobin and normal platelets. ProBNP is minimally elevated troponin is normal 09/12/24 11:25 09/12/24 11:25 Labs: Lab Results 09/12/24 Range/Units 11:25 WBC 3.5 L (4.5-11.0) X10^3/uL RBC 4.60 (4.0-5.2) X10^6/uL Hgb 13.6 (12.0-16.0) g/dL Hct 40.1 (36-46) % MCV 87.0 (80-100) fL MCH 29.5 (26-34) PG MCHC 33.9 (30-36) % RDW 12.7 (11.6-14.8) % Plt Count 161 (150-400) X10^3/uL Neut % (Auto) 51.9 (50-75) % Lymph % (Auto) 34.5 (25-40) % [place] % (Auto) 6.8 (3-14) % Eos % (Auto) 5.5 H (2-4) % Baso % (Auto) 1.3 (0-2) % Neut # (Auto) 1800 (2632-0892) /uL Lymph # (Auto) 1200 (0765-6908) /uL [place] # (Auto) 200 (0-900) /uL Eos # (Auto) 200 (0-450) /uL Baso # (Auto) 0 (0-100) /uL PT 12.3 (9.4-12.5) SECONDS INR 1.1 (0.9-1.3) Sodium 139 (137-145) mmol/L Potassium 3.8 (3.4-5.1) mmol/L Chloride 103 (98-107) mmol/L Carbon Dioxide 26 (22-32) mmol/L BUN 21 H (7-17) mg/dL Creatinine 0.99 (0.52-1.04) mg/dL Estimated GFR > 60 (>60) mL/min BUN/Creatinine Ratio 21.2 (6-22) Glucose 109 (80-110) mg/dL Lactate 1.0 (0.7-2.1) mmol/L Calcium 9.4 (8.4-10.2) mg/dL Total Bilirubin 0.9 (0.2-1.3) mg/dL AST 34 (14-36) IU/L ALT 24 (<35) IU/L Alkaline Phosphatase 68 (38-126) U/L Troponin I < 0.012 (0.01-0.034) ng/mL NT-Pro-B Natriuret Pep 169 H (<125) pg/mL Total Protein 7.4 (6.3-8.2) g/dL Albumin 4.7 (3.5-5.0) g/dL Globulin 2.7 (1.7-4.1) g/dL Albumin/Globulin Ratio 1.7 (1.0-2.8) Imaging Data Chest x-ray: My Impression: Independently reviewed chest x-ray, no acute finding Radiologist's Impression: Reviewed radiology report, no acute abnormality reported US - DVT: Radiologist's Impression: No DVT in right leg per Radiology report ECG Data Interpretation: EKG shows normal sinus rhythm at [address] segment changes no evidence of previous infarction normal intervals MDM Narrative Medical decision making narrative: 64-year-old female with episodic dyspnea that is not strictly exertional. Only cardiac risk factor is family history. I considered but do not suspect pulmonary embolism and she did have some right calf pain but this was negative for DVT. We did not find a cardiac dysrhythmia she has not anemic and does not have an infiltrate on her chest x-ray, she does not appear to have heart failure while her proBNP is mildly elevated, she has not hypoxic she has not hypertensive and did not have changes to suggest failure on her chest x-ray. Patient was discharged home and will follow up with her primary care provider. Discharge Plan Departure Patient Disposition: Home Clinical Impression: Dyspnea Qualifiers: Dyspnea type: shortness of breath Qualified Code(s): R06.02 - Shortness of breath Activity Restrictions/Additional Instructions: No serious cause for your episodic shortness of breath was found today. I think that it is safe for you to go home. Since the reported some wheezing we can try an albuterol inhaler 2 puffs every 4 hours as needed. If you are having increasing shortness of breath chest pain fevers or other acute symptoms recheck in the emergency department. Follow up as soon as possible with your primary care provider. Prescriptions: New albuterol sulfate 90 mcg/actuation HFA aerosol inhaler 2 puff inhalation Q4-6H PRN (Reason: shortness of breath or wheezing) Qty: 6.7 0RF No Action liothyronine 5 mcg tablet PO levothyroxine 50 mcg tablet 50 mcg PO DAILY Xiidra 5 % dropperette ophthalmic (eye) Patient Comments: [NO ORIGINAL SIG] erythromycin 5 mg/gram (0.5 %) ointment 0.5 inch EYE-RIGHT QID Qty: 3.5 0RF GNC Multivitamin 1 tab PO DAILY Ocuvite [facility] 50 mg-15 unit- 4.5 mg-2.5 mg tablet,chewable 1 tab PO DAILY omega-3 fatty acids [Fish Oil Concentrate] 1,000 mg capsule 1,000 mg PO DAILY Citracal and Vitamin D3 See Rx Instructions PO DAILY Rx Instructions: 1 TAB PO daily; 200MG/250IU Referrals: Shaan,Nicole, [employer] MACHINE DRAWER IN [Primary Care Provider] - Stand Alone Forms: Patient Portal/API/Survey
--- NOTE | 2024-09-12 13:41 | DI.US.S_ITS ---
PROCEDURE: US PERIPH VENOUS LOW EXTREM RT INDICATIONS: EDEMA TECHNIQUE: Real-time imaging, as well as color and pulse Doppler interrogation, were performed of the lower extremity deep veins from the inguinal ligament to the popliteal fossa, with documentation of the visualized calf veins. COMPARISON: None. FINDINGS: The common femoral, femoral, popliteal, and the visualized calf veins are normally compressible, and free of intraluminal thrombus. Color and pulse Doppler demonstrate normal phasic intraluminal flow. There is normal augmentation response to distal compression maneuver. IMPRESSION: No findings of lower extremity deep venous thrombosis. Approved by: Reid Narayan M.D. on 09/12/2024 at 14:06
--- NOTE | 2024-09-12 14:03 | PC.NURSE ---
This RN took patient off monitor so patient could ambulate to the restroom.
--- NOTE | 2024-09-12 14:07 | PC.NURSE ---
voice intercept technician enters room with portable device to perform ordered diagnostic test.
== END 2024-09-12 15:52 | disposition home or self-care (01) ==
PROVIDERS: Emergency Medicine; Emergency Provider Emergency Medicine; PCP Internal Medicine
DX: R06.02 Shortness of breath (principal)
CPT/HCPCS: 36415; 71045; 80053; 83605; 83880; 84484; 85025; 85610; 93005; 93971; 99284

== ENCOUNTER → 2024-10-11 08:04 | Outpatient (CLI) | payer OTHER, SELFPAY ==
--- NOTE | 2024-10-11 08:06 | DI.ECHO.S_ITS ---
[place] [facility] : : [address] : : [place] : : [id number] : : Phone: [phone] Echocardiogram Report + + :Name: JERONIMO STEWARD Study Date: 10/11/2024 Height: 68 in : :[facility] ReadingLocation: Weight: 140 lb : : Gender: Female BSA: 1.8 m2 : :: 1960 Age: 64 yrs BP: 112/69 mmHg: :Reason For Study: SHORTNESS OF BREATH, TRICUSPID VALVE : :INSUFFICIENCY : :Ordering Physician: POP IRAHETAPerformed By: Maame Diaz : :Referring: POP IRAHETA : + + Interpretation Summary 1. The left ventricular contractility is normal. Estimate ejection fraction is greater than 55% with no segmental wall motion abnormalities. No LVH. Normal diastolic function. 2. The right ventricular contractility is normal. 3. All cardiac chambers are of normal size. 4. Mild to moderate tricuspid regurgitation with estimated pulmonary systolic artery pressures of 31 mmHg. 5. No obvious intracardiac shunts. 6. No obvious intracardiac masses nor thrombi. 7. A trace, nonhemodynamically significant pericardial effusion noted. 8. Normal right-sided filling pressures. Conclusion: Normal biventricular systolic function with mild to moderate tricuspid regurgitation and normal estimated pulmonary systolic artery pressures. Procedure: A two-dimensional transthoracic echocardiogram with color flow and Doppler was performed. The study quality was technically adequate. There is no prior echocardiogram noted for this patient. The patient was in sinus bradycardia with heart rates between 54-60 bpm during the exam. Left Ventricle: The left ventricle is normal in size and wall thickness. The ejection fraction is estimated to be 55-60%. Right Ventricle: The right ventricle is normal in size and function. Atria: The left atrial size is normal. Right atrial size is normal. Mitral Valve: The mitral valve leaflets appear mildly thickened, but open well. The mitral valve leaflets appear to open well. There is trace mitral regurgitation. Aortic Valve: The aortic valve is trileaflet. The aortic valve opens well. There is no aortic valve stenosis. No aortic regurgitation is present. Tricuspid Valve: The tricuspid valve leaflets are thin and pliable. There is mild to moderate tricuspid regurgitation. The right ventricular systolic pressure is estimated to be at least 31 mmHg based on an estimated right atrial pressure of 8 mm Hg. Pulmonic Valve: The pulmonic valve leaflets are thin and pliable; valve motion is normal. There is no pulmonic valvular regurgitation. Great Vessels: The aortic root is normal size. The ascending aorta could not be visualized. The IVC is of normal diameter and collapses less than 50% with a sniff. This suggests a right atrial pressure of 8 mm Hg. Pericardium/ Pleura There is a trivial pericardial effusion noted. There is no pleural effusion. MMode/2D Measurements & Calculations LVIDd: 4.7 cm LVOT diam: 1.8 cm LVIDs: 3.1 cm Ao root diam: 2.8 cm FS: 33.3 % Ao Arch Diam (Prox Trans): 2.7 cm IVSd: 0.51 cm LVPWd: 0.60 cm LV vega. diameter/BSA (cm/m^2): 2.7 LV sys. diameter/BSA (cm/m^2): 1.8 LA A2 area: 14.6 cm2 RA long axis: 5.1 cm LA A4 area: 14.3 cm2 RA area: 17.0 cm2 LA length (vol): 4.4 cm RA vol: 48.5 ml LA vol: 40.8 ml RA : 27.6 ml/m2 LA vol index: 23.2 ml/m2 IVC diam: 1.8 cm RVD1 (basal): 3.2 cm RVD2 (mid): 2.4 cm TAPSE: 2.3 cm Doppler Measurements & Calculations Ao V2 max: 136.9 cm/sec LVOT Max Dieter: 115.1 cm/sec Ao V2 mean: 98.3 cm/sec LV V1 max P.3 mmHg Ao max P.5 mmHg LV V1 VTI: 25.1 cm Ao mean P.2 mmHg WINNIE(I,D): 1.9 cm2 Ao V2 VTI: 32.5 cm WINNIE(V,D): 2.1 cm2 sev ratio: 0.77 WINNIE indexed to BSA (cm^2/m^2): 1.1 MV E max dieter: 74.2 cm/sec TR max dieter: 241.2 cm/sec MV A max dieter: 44.6 cm/sec TR max P.3 mmHg MV E/A: 1.7 PA V2 max: 98.7 cm/sec Med Peak E' Dieter: 12.3 cm/sec PA V2 mean: 67.6 cm/sec E/E' med: 6.0 PA mean P.1 mmHg Lat Peak E' Dieter: 13.6 cm/sec PA pr(Accel): 3.2 mmHg E/E' lat: 5.4 E/e' average: 5.7 MV dec time: 0.19 sec Pulm A Revs Dieter: 36.1 cm/sec SV(LVOT): 62.7 ml Pulm A Revs Dur: 0.07 sec Reading Physician:LETY
== END ==
LOC: ECHO 08:05
PROVIDERS: PCP Family Medicine; Referring Provider Nurse Practitioner; Visit Provider Nurse Practitioner
DX: I36.1 Nonrheumatic tricuspid (valve) insufficiency (principal); R06.02 Shortness of breath
CPT/HCPCS: 93306

== ENCOUNTER → 2024-10-15 08:17 | Outpatient (CLI) | payer OTHER, SELFPAY ==
--- NOTE | 2024-10-15 08:18 | DI.US.S_ITS ---
PROCEDURE: US ABDOMEN COMPLETE INDICATIONS: AUTOIMMUNE DISEASE,CALCULUS OF GALLBLADDER TECHNIQUE: Real-time scanning was performed of the abdominal and retroperitoneal organs, with image documentation. COMPARISON: [facility], US, US ABDOMEN COMPLETE, 06/12/2023, 8:39. FINDINGS: Liver: Mild diffuse increased echogenicity of the liver commonly hepatic steatosis or intrinsic hepatic disease unchanged. Liver is normal in size 12-14 cm in CC dimension of the right lobe. Gallbladder: Cholelithiasis without ultrasound evidence of cholecystitis. No gallbladder wall thickening, no pericholecystic fluid and sonographic Waller sign is noted as negative. Biliary ducts: Intrahepatic bile ducts are non-dilated. Extrahepatic bile duct caliber measures 3 mm. Normal is 6-7 mm or less in diameter. Pancreas: Visualized portions of the pancreas are sonographically normal. Spleen: Accessory spleen/splenule 2.5 cm unchanged. Spleen measures approximately 12.1 cm in length, borderline enlarged unchanged. Kidneys: Kidneys are normal in size and echotexture. Right kidney measures 9.9 cm long; left kidney measures 9.7 cm long. No hydronephrosis or nephrolithiasis. No solid masses. Aorta: Visualized aorta is normal in caliber at less than 3 cm. Iliacs: Proximal common iliac arteries are normal in caliber at less than 2.5 cm. IVC: Intrahepatic inferior vena cava is patent. Miscellaneous: No free abdominal fluid. IMPRESSION: Increased echogenicity of the liver commonly hepatic steatosis or intrinsic hepatic disease. Cholelithiasis without ultrasound evidence of cholecystitis. Borderline enlarged spleen unchanged. If symptoms persist or worsen, or there is high clinical suspicion of abdominal abnormality CT could be performed. Dictated by: Dion Saunders M.D. on 10/15/2024 at 13:01 Approved by: Dion Saunders M.D. on 10/15/2024 at 13:25
== END ==
PROVIDERS: PCP Family Medicine; Referring Provider Family Medicine; Visit Provider Family Medicine
DX: K80.20 Calculus of gallbladder without cholecystitis without obstruction (principal); M35.9 Systemic involvement of connective tissue, unspecified
CPT/HCPCS: 76700

== ENCOUNTER → 2024-12-08 16:17 | Outpatient (CLI) | payer OTHER, SELFPAY ==
--- NOTE | 2024-12-08 16:19 | DI.MG.S_ITS ---
MM screening mammo BI2D: 12/08/2024. BI-RADS: 1 CLINICAL: 64-year old female for bilateral screening mammogram. Tyrer-Cuzick lifetime risk of 8.1%. No personal or first-degree family history of breast cancer. PRIOR EXAMS 11/07/2023, 09/27/2022, 08/28/2021, 08/03/2020, 06/16/2019, 06/11/2018, 05/13/2017, 04/10/2016. MAMMOGRAPHY TECHNIQUE: Current study was also evaluated with a Computer Aided Detection (CAD) system. 4 images were obtained including bilateral CC and MLO views. DENSITY C. The breasts are heterogeneously dense, which may obscure small masses. MAMMOGRAPHY FINDINGS Bilateral: No suspicious mass, asymmetry, microcalcification, or other abnormality seen. IMPRESSION: * No evidence of malignancy. RECOMMENDATIONS Bilateral * Annual screening mammography. OVERALL ASSESSMENT CATEGORY BI-RADS-1: Negative. The [employer] recommends annual screening mammography beginning at age 40 for women with average risk of breast cancer. ELECTRONICALLY SIGNED: Marvin Bender M.D. on 12/09/2024 at 07:05:01 AM PT Interpreting Station ID: [id number]
== END ==
PROVIDERS: PCP Family Medicine; Referring Provider Family Medicine; Visit Provider Family Medicine
DX: Z12.31 Encounter for screening mammogram for malignant neoplasm of breast (principal); R92.333 Mammographic heterogeneous density, bilateral breasts
CPT/HCPCS: 77067

== ENCOUNTER → 2025-06-07 07:59 | Outpatient (CLI) | payer OTHER, SELFPAY ==
[2025-06-07 08:53] LABS: Alanine Aminotransferase 24 IU/L (<35); Albumin 4.8 g/dL (3.5-5.0); Albumin Globulin Ratio 1.8 (1.0-2.8); Alkaline Phosphatase 69 U/L (38-126); Blood Urea Nitrogen 16 mg/dL (7-17); Calcium 9.4 mg/dL (8.4-10.2); Carbon Dioxide 28 mmol/L (22-32); Chloride 102 mmol/L (98-107); Cholesterol 156 mg/dL (140-199); Estimated Glomerular Filt Rate > 60 mL/min (>60); Globulin 2.6 g/dL (1.7-4.1); Glucose 98 mg/dL (70-99); HDL Cholesterol 87 mg/dL (40-60); HEMOLYSIS < 15 (0-50); Potassium 4.1 mmol/L (3.4-5.1); Sodium 137 mmol/L (137-145); Total Protein 7.4 g/dL (6.3-8.2); Triglycerides 60 mg/dL (35-150)
[2025-06-07 09:34] LABS: Hemoglobin A1C% w Est Avg Glu 5.2 % (4.0-6.0)
== END ==
PROVIDERS: PCP Family Medicine; Referring Provider Family Medicine; Visit Provider Internal Medicine Cardiovascular Disease
DX: E03.9 Hypothyroidism, unspecified (principal); I25.10 Atherosclerotic heart disease of native coronary artery without angina pectoris; I49.3 Ventricular premature depolarization; R55 Syncope and collapse
CPT/HCPCS: 36415; 80053; 80061; 83036